=== PATIENT | male | born 1960 | race African-American/Black ===

== ENCOUNTER 2017-01-29 18:27 | Emergency (ER) | payer OTHER ==
[~2017-01-29] VITALS: Ht 186.7 cm; Wt 129.3 kg
== END 2017-01-29 20:41 | disposition home or self-care (01) ==
LOC: CFTX 18:27 → CED 18:27 → CFTX 19:55
DX: J06.9 Acute upper respiratory infection, unspecified (principal)
CPT/HCPCS: 99283